=== PATIENT | female | born 1995 | race Hispanic/Latino ===

== ENCOUNTER 2018-10-05 15:56 | Emergency (ER) | payer MEDICAID, OTHER ==
--- NOTE | 2018-10-05 16:13 | Emergency Department Report ---
Chief Complaint: Headache Stated Complaint: HEADACHES/DIARRHEA Time Seen by Provider: 10/05/18 16:12 - HPI History of Present Illness: This is a 23 y.o. female that presents with headache and diarrhea since yesterday. - ROS Review of Systems: headache and diarrhea - Exam Vital Signs: Vital Signs 10/05/18 16:11 Temperature 98.4 F Pulse Rate 98 H Respiratory 18 Rate Blood Pressure 120/67 O2 Sat by Pulse 98 Oximetry MSE screening note: Focused history and physical exam performed. Due to findings the following was ordered: Fast track for further evaluation ED Disposition for MSE Condition: Stable
--- NOTE | 2018-10-05 19:08 | Emergency Department Report ---
ED Headache HPI - General Chief Complaint: Headache Stated Complaint: HEADACHES/DIARRHEA Time Seen by Provider: 10/05/18 16:12 - History of Present Illness Initial Comments: 23-year-old female presents to ED complaining throbbing aching type migraine headache and diarrhea that started last night. She states diarrhea was nonbloody, watery stools. Patient does not recall eating anything unusual in the past couple of days. She denies fevers/chills/blurry vision/chest pains or shortness of breath abdominal pain or vomiting. Timing/Duration: 24 hours Quality: mild, achy, throbbing Head Injury Location: frontal, temporal Recent Head Trauma: no recent headache/trauma, occasional headaches Modifying Factors: improves with: rest Associated Symptoms: denies: nausea/vomiting, nasal congestion, nasal drainage, sinus infection, vision changes, weakness Allergies/Adverse Reactions: Allergies No Known Allergies Allergy (Unverified 11/05/14 15:31) Home Medications: Ambulatory Orders Acetaminophen/Codeine [Tylenol #3] 1 tab PO Q6H PRN #10 tab 11/05/14 cephALEXin [Keflex] 250 mg PO Q6H #28 capsule 11/05/14 Ibuprofen [Motrin] 600 mg PO Q8H #20 tablet 10/05/18 Ondansetron (Nf) [Zofran TAB] 8 mg PO Q8HR #30 tablet 10/05/18 ED Review of Systems ROS: Stated complaint: HEADACHES/DIARRHEA Other details as noted in HPI Comment: All other systems reviewed and negative ED Past Medical Hx - Past Medical History Previous Medical History?: Yes Hx Hypertension: No Hx Diabetes: No Hx Deep Vein Thrombosis: No Hx Renal Disease: No Hx Sickle Cell Disease: No Hx Seizures: No Hx Asthma: No Hx HIV: No - Surgical History Past Surgical History?: No - Social History Smoking Status: Never Smoker Substance Use Type: None - Medications Home Medications: Home Medications Medication Instructions Recorded Confirmed Last Taken Type Acetaminophen/Codeine [Tylenol #3] 1 tab PO Q6H PRN #10 tab 11/05/14 Unknown Rx cephALEXin [Keflex] 250 mg PO Q6H #28 capsule 11/05/14 Unknown Rx Ibuprofen [Motrin] 600 mg PO Q8H #20 tablet 10/05/18 Unknown Rx Ondansetron (Nf) [Zofran TAB] 8 mg PO Q8HR #30 tablet 10/05/18 Unknown Rx ED Physical Exam - General Limitations: No Limitations General appearance: alert, in no apparent distress - Head Head exam: Present: atraumatic, normocephalic - Eye Eye exam: Present: normal appearance - ENT ENT exam: Present: mucous membranes moist - Neck Neck exam: Present: normal inspection - Respiratory Respiratory exam: Present: normal lung sounds bilaterally. Absent: respiratory distress - Cardiovascular Cardiovascular Exam: Present: regular rate, normal rhythm. Absent: systolic murmur, diastolic murmur, rubs, gallop - GI/Abdominal GI/Abdominal exam: Present: soft, normal bowel sounds. Absent: distended, tenderness, guarding, rebound - Rectal Rectal exam: Absent: normal inspection - Extremities Exam Extremities exam: Present: normal inspection - Back Exam Back exam: Present: normal inspection, full ROM. Absent: CVA tenderness (R), CVA tenderness (L) - Neurological Exam Neurological exam: Present: alert, oriented X3, CN II-XII intact, normal gait - Expanded Neurological Exam Expanded Patient oriented to: Present: person, place, time Speech: Present: fluid speech Cranial nerves: Facial Sensation: Normal Cerebellar function: Finger to Nose: Normal, Heel to Howard: Normal Sensory exam: Upper Extremity Light Touch: Normal, Lower Extremity Light Touch: Normal, Lower Extremity Temperature: Normal Motor strength exam: RUE: 5, LUE: 5, RLE: 5, LLE: 5 DTR: knee (R): 2+, knee (L): 2+ Best Eye Response (Odell): (4) open spontaneously Best Motor Response (Odell): (6) obeys commands Best Verbal Response (Concepcion): (5) oriented Concepcion Total: 15 - Psychiatric Psychiatric exam: Present: normal affect, normal mood - Skin Skin exam: Present: warm, dry, intact, normal color. Absent: rash, urticaria ED Course Vital Signs 10/05/18 16:11 Temperature 98.4 F Pulse Rate 98 H Respiratory 18 Rate Blood Pressure 120/67 O2 Sat by Pulse 98 Oximetry ED Medical Decision Making - Medical Decision Making 23 year female presents with migraine headache. Patient has no neurologic deficits. Patient had no diarrhea episodes in the ED. Discussed follow-up with primary care physician. Patient is alert and oriented 3 she is in no distress. Critical care attestation.: If time is entered above; I have spent that time in minutes in the direct care of this critically ill patient, excluding procedure time. ED Disposition Clinical Impression: Migraine headache without aura Disposition: TO HOME OR SELFCARE Is pt being admited?: No Does the pt Need Aspirin: No Condition: Stable Instructions: Migraine Headache (ED), Gastroenteritis (ED) Additional Instructions: Make sure to follow up with the primary care physician as discussed. Take all your medications as you've been prescribed. If you have any worsening symptoms or develop new symptoms please return to ED immediately. Prescriptions: Ibuprofen [Motrin] 600 mg PO Q8H #20 tablet Ondansetron (Nf) [Zofran TAB] 8 mg PO Q8HR #30 tablet Referrals: BRAD ROBBINS MD [Primary Care Provider] - 3-5 Days Forms: Accompanied Note, Work/School Release Form(ED) Time of Disposition: 19:25
== END 2018-10-05 19:31 | disposition home or self-care (01) ==
LOC: ED 15:56
DX: G43.009 Migraine without aura, not intractable, without status migrainosus (principal)
CPT/HCPCS: 99282

== ENCOUNTER 2019-04-28 21:27 | Day surgery (SDC) | payer OTHER ==
--- NOTE | 2019-04-28 22:38 | Event Note ---
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 Further treatment and workup at subsequent clinical providers discretion. Patient/guardian urged not to elope from the ED as their condition may be serious if not clinically assessed and managed. Initial orders include: labs, UA, US
[2019-04-28 23:13] LABS: Basophils % (Auto) 0.5 % (0.0-1.8); Eosinophils # (Auto) 0.1 K/mm3 (0.0-0.4); Eosinophils % (Auto) 1.1 % (0.0-4.3); Hematocrit 37.8 % (30.3-42.9); Hemoglobin 12.5 gm/dl (10.1-14.3); Lymphocytes # (Auto) 2.4 K/mm3 (1.2-5.4); Lymphocytes % (Auto) 32.3 % (13.4-35.0); Mean Corpuscular HGB Conc 33 % (30-34); Mean Corpuscular Volume 85 fl (79-97); Monocytes # (Auto) 0.6 K/mm3 (0.0-0.8); Monocytes % (Auto) 7.4 % (0.0-7.3); Platelet Count 191 K/mm3 (140-440); Red Blood Count 4.47 M/mm3 (3.65-5.03); Red Cell Distribution Width 13.5 % (13.2-15.2)
--- NOTE | 2019-04-29 00:36 | Emergency Department Report ---
ED HPI - General Chief complaint: Abdominal Pain Stated complaint: VAGINAL SPOTTING/7 WKS PREG Time Seen by Provider: 04/28/19 22:37 Source: patient Mode of arrival: Ambulatory Limitations: No Limitations - History of Present Illness Initial comments: She is a 24-year-old female that presents emergency room with complaints of vaginal spotting and abdominal cramping. Patient states her abdominal cramping is 1-2. Patient states her abdominal cramping has now resolved. Patient states that her spotting is slight. Patient denies clots. Patient denies vaginal discharge. 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 MD Complaint: abdominal pain, vaginal bleeding -: Sudden Location: abdomen Radiation: none Severity scale (0 -10): 2 Quality: cramping Consistency: now resolved Improves with: rest Worsens with: movement Associated symptoms: vaginal bleeding Vaginal bleeding: light :: Yes OB History - Current : no complications OB History - Previous Pregnancies: no complications Pre-vanita care: followed by OB - Related Data Previous Rx's Medication Instructions Recorded Last Taken Type Acetaminophen/Codeine [Tylenol #3] 1 tab PO Q6H PRN #10 tab 11/05/14 Unknown Rx cephALEXin [Keflex] 250 mg PO Q6H #28 capsule 11/05/14 Unknown Rx Ibuprofen [Motrin] 600 mg PO Q8H #20 tablet 10/05/18 Unknown Rx Ondansetron (Nf) [Zofran TAB] 8 mg PO Q8HR #30 tablet 10/05/18 Unknown Rx Allergies Allergy/AdvReac Type Severity Reaction Status Date / Time No Known Allergies Allergy Unverified 11/05/14 15:31 ED Review of Systems ROS: Stated complaint: VAGINAL SPOTTING/7 WKS PREG Other details as noted in HPI Constitutional: denies: chills, fever Eyes: denies: eye pain, eye discharge, vision change ENT: denies: ear pain, throat pain Respiratory: denies: cough, shortness of breath, wheezing Cardiovascular: denies: chest pain, palpitations Endocrine: no symptoms reported Gastrointestinal: abdominal pain. denies: nausea, diarrhea Genitourinary: denies: urgency, dysuria, discharge Musculoskeletal: denies: back pain, joint swelling, arthralgia Skin: denies: rash, lesions Neurological: denies: headache, weakness, paresthesias Psychiatric: denies: anxiety, depression Hematological/Lymphatic: denies: easy bleeding, easy bruising ED Past Medical Hx - Past Medical History Previous Medical History?: No Hx Hypertension: No Hx Diabetes: No Hx Deep Vein Thrombosis: No Hx Renal Disease: No Hx Sickle Cell Disease: No Hx Seizures: No Hx Asthma: No Hx HIV: No - Surgical History Past Surgical History?: No - Family History Family history: no significant - Social History Smoking Status: Never Smoker Substance Use Type: None - Medications Home Medications: Home Medications Medication Instructions Recorded Confirmed Last Taken Type Acetaminophen/Codeine [Tylenol #3] 1 tab PO Q6H PRN #10 tab 11/05/14 Unknown Rx cephALEXin [Keflex] 250 mg PO Q6H #28 capsule 11/05/14 Unknown Rx Ibuprofen [Motrin] 600 mg PO Q8H #20 tablet 10/05/18 Unknown Rx Ondansetron (Nf) [Zofran TAB] 8 mg PO Q8HR #30 tablet 10/05/18 Unknown Rx ED Physical Exam - General Limitations: No Limitations General appearance: alert, in no apparent distress - Head Head exam: Present: atraumatic, normocephalic - Eye Eye exam: Present: normal appearance - ENT ENT exam: Present: mucous membranes moist - Neck Neck exam: Present: normal inspection - Respiratory Respiratory exam: Present: normal lung sounds bilaterally. Absent: respiratory distress - Cardiovascular Cardiovascular Exam: Present: regular rate, normal rhythm. Absent: systolic murmur, diastolic murmur, rubs, gallop - GI/Abdominal GI/Abdominal exam: Present: soft, normal bowel sounds - Extremities Exam Extremities exam: Present: normal inspection - Back Exam Back exam: Present: normal inspection - Neurological Exam Neurological exam: Present: alert, oriented X3 - Psychiatric Psychiatric exam: Present: normal affect, normal mood - Skin Skin exam: Present: warm, dry, intact, normal color. Absent: rash ED Course Vital Signs 04/28/19 04/29/19 22:38 03:41 Temperature 99 F 98.7 F Pulse Rate 77 100 H Respiratory 18 18 Rate Blood Pressure 113/46 Blood Pressure 112/62 [Left] O2 Sat by Pulse 99 100 Oximetry - Reevaluation(s) Reevaluation #1: Discussed all results with patient. I discussed plan of care patient. patient agrees plan of care and admission 04/29/19 01:16 - Consultations Consultation #1: EXECUTIVE ADMINISTRATIVE ASSISTANT paged. Dr. Tonia Lui's group . 04/29/19 01:17 I discussed case with Dr. Bond and Dr. Bond see the patient. Dr. Bond states she is going to admit 04/29/19 01:35 ED Medical Decision Making - Lab Data Result diagrams: 04/28/19 22:40 - Radiology Data Radiology results: report reviewed ULTRASOUND OBSTETRIC INDICATION / CLINICAL INFORMATION: preg, spotting. Clinical Gestational Age (GA): 7 weeks 1 day TECHNIQUE: Transabdominal and Transvaginal. COMPARISON: None available. FINDINGS: UTERUS: There is no evidence of an intrauterine . The endometrium is slightly heterogeneous, measuring up to 1.4 cm in thickness. ADNEXA: The ovaries are unremarkable. There is a right adnexal mass measuring up to 3.0 x 1.6 cm which contains a yolk sac and a pole. The crown-rump length measures up to 7.6 mm, compatible with 6 weeks 5 days. Cardiac motion is identified, with heart rate of 120. FREE FLUID: None. ADDITIONAL FINDINGS: None. IMPRESSION: 1. Findings compatible with a right ectopic , with a pole with cardiac motion identified. 2. No intrauterine . - Medical Decision Making Patient is a 24-year-old female that presents emergency room with complaints of abdominal pain and vaginal spotting. Patient had no strong done and is positive for a several week pole in the fallopian tube. EXECUTIVE ADMINISTRATIVE ASSISTANT consult that and took patient to the operating room. Patient typed and screened and found to be Rh- and Khushboo assessment was ordered program will be given in the OR. Dr. Bond made aware of Rh status. Rest of labs unremarkable. - Differential Diagnosis ectopic . Abdominal pain and vaginal spotting. Threatened aborti Critical Care Time: Yes Critical care attestation.: If time is entered above; I have spent that time in minutes in the direct care of this critically ill patient, excluding procedure time. Critical Care Time: 45 minutes ED Disposition Clinical Impression: Vaginal spotting Abdominal pain Qualifiers: Abdominal location: lower abdomen, unspecified Qualified Code(s): R10.30 - Lower abdominal pain, unspecified Ectopic Qualifiers: Location of ectopic : tubal Intrauterine status: without intrauterine Laterality: unspecified laterality Qualified Code(s): O00.109 - Unspecified tubal without intrauterine Rh negative status during Qualifiers: Trimester: first trimester Qualified Code(s): O26.891 - Other specified related conditions, first trimester Disposition: OP ADMIT IP TO THIS HOSP Is pt being admited?: Yes Does the pt Need Aspirin: No Condition: Critical Time of Disposition: 01:15
--- NOTE | 2019-04-29 01:05 | Ultrasound Report ---
ULTRASOUND OBSTETRIC INDICATION / CLINICAL INFORMATION: preg, spotting. Clinical Gestational Age (GA): 7 weeks 1 day TECHNIQUE: Transabdominal and Transvaginal. COMPARISON: None available. FINDINGS: UTERUS: There is no evidence of an intrauterine . The endometrium is slightly heterogeneous, measuring up to 1.4 cm in thickness. ADNEXA: The ovaries are unremarkable. There is a right adnexal mass measuring up to 3.0 x 1.6 cm whic h contains a yolk sac and a pole. The crown-rump length measures up to 7.6 mm, compatible with 6 weeks 5 days. Cardiac motion is identified, with heart rate of 120. FREE FLUID: None. ADDITIONAL FINDINGS: None. IMPRESSION: 1. Findings compatible with a right ectopic , with a pole with cardiac motion identifi ed. 2. No intrauterine . The above findings were discussed with Dr. Nathan Carlos in the Emergency Department at 11:59 PM ce ntral time on 04/28/2019. Signer Name: Leigh Iverson MD Signed: 04/29/2019 1:01 AM Workstation Name: [id number]
--- NOTE | 2019-04-29 02:26 | History and Physical Report ---
History of Present Illness Date of examination: 04/29/19 Chief complaint: , vaginal spotting History of present illness: Pt is a 24 year old -[place] female LMP 03/09/19 at 7w2d who presents to the ED with mild pelvic cramping and vaginal spotting. During her evaluation, her HCG was noted to be 7,166 mIU/mL and pelvic ultrasound revealed a right ectopic with cardiac activity and yolk sac. 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 Family/Genetic History: hypertension Social history: no significant social history - Obstetrical History Expected Date of Delivery: 12/14/19 Actual Gestation: 7 Week(s) 2 Day(s) : 2 Para: 1 Hx # Term Pregnancies: 1 Number of Pregnancies: 0 Spontaneous Abortions: 0 Induced : 0 Number of Living Children: 1 Medications and Allergies Allergies Allergy/AdvReac Type Severity Reaction Status Date / Time No Known Allergies Allergy Unverified 11/05/14 15:31 Home Medications Medication Instructions Recorded Confirmed Last Taken Type Acetaminophen/Codeine [Tylenol #3] 1 tab PO Q6H PRN #10 tab 11/05/14 Unknown Rx cephALEXin [Keflex] 250 mg PO Q6H #28 capsule 11/05/14 Unknown Rx Ibuprofen [Motrin] 600 mg PO Q8H #20 tablet 10/05/18 Unknown Rx Ondansetron (Nf) [Zofran TAB] 8 mg PO Q8HR #30 tablet 10/05/18 Unknown Rx Active Meds: Active Medications Lactated Ringer's (Lactated Ringers) 1,000 mls @ 125 mls/hr IV DIRECT JORDY Cefazolin Sodium (Ancef/Sterile Water 2 Gm/20 Ml) 2 gm in 20 mls @ 80 mls/hr IV PREOP NR; Protocol Review of Systems All systems: negative - Vital Signs Vital signs: Vital Signs Temp Pulse Resp BP Pulse Ox 99 F 77 18 113/46 99 04/28/19 22:38 04/28/19 22:38 04/28/19 22:38 04/28/19 22:38 04/28/19 22:38 Temp Pulse Resp BP Pulse Ox 99 F 77 18 113/46 99 04/28/19 22:38 04/28/19 22:38 04/28/19 22:38 04/28/19 22:38 04/28/19 22:38 - Physical Exam Breasts: Positive: deferred Cardiovascular: Regular rate Lungs: Positive: Clear to auscultation Abdomen: Positive: soft. Negative: guarding Extremities: Positive: normal Results Result Diagrams: 04/28/19 22:40 Abnormal lab results 04/28/19 04/28/19 Range/Units 22:40 22:40 [place] % (Auto) 7.4 H (0.0-7.3) % HCG, Quant 7166 H (0-4) mIU/mL All other labs normal. Assessment and Plan A: Right ectopic Rh Negative P: Proceed with laparoscopic right salpingectomy, possible laparotomy and other indicated procedures. Rhogam postoperatively
[2019-04-29] MEDS ORDERED: ONDANSETRON 4 MG/2 ML INJ IV PRN (02:34)
[2019-04-29] MEDS ORDERED: HYDROmorphone 1 MG/1 ML INJ IV PRN (02:34)
[2019-04-29] MEDS ORDERED: fentaNYL 100 MCG/2 ML INJ IV PRN (02:34)
--- NOTE | 2019-04-29 02:35 | Anesthesia Day of Surgery ---
Anesthesia Day of Surgery - Day of Surgery Patient Examined: Yes Patient H&P Reviewed: Yes Patient is NPO: Yes (15:00)
--- NOTE | 2019-04-29 02:36 | Anesthesia Consultation ---
Anesthesia Consult and Med Hx Date of service: 04/29/19 - Airway Anesthetic Teeth Evaluation: Good ROM Head & Neck: Adequate Mental/Hyoid Distance: Adequate Mallampati Class: Class I Intubation Access Assessment: Good - Pre-Operative Health Status ASA Pre-Surgery Classification: ASA1, Emergency Proposed Anesthetic Plan: General - Pulmonary Hx Asthma: No - Cardiovascular System Hx Hypertension: No - Central Nervous System Hx Seizures: No Hx Psychiatric Problems: No - Endocrine Hx Renal Disease: No Hx Hypothyroidism: No Hx Hyperthyroidism: No - Hematic Hx Anemia: No Hx Sickle Cell Disease: No - Other Systems Hx Alcohol Use: No
[2019-04-29] MEDS ORDERED: ceFAZolin/Water 2 GM/20 ML 2 GM/20 ML SYRINGE IV NR (03:00)
[2019-04-29] MEDS ORDERED: LACTATED RINGERS 1,000 ML IV SCH (03:00)
[2019-04-29] MEDS ORDERED: BUPIVACAINE/PF (0.5%) 5 MG/1 ML 30 ML VIAL INFILTRATI ONE ×2 (04:31→05:31)
[2019-04-29] MEDS ORDERED: ROCURONIUM 50 MG/5 ML INJ IV ONE (04:37)
[2019-04-29] MEDS ORDERED: HYDROmorphone 1 MG/1 ML INJ ONE (04:37)
[2019-04-29] MEDS ORDERED: SUCCINYLCHOLINE CHLORIDE 200 MG/10 ML INJ MDV ONE (04:37)
[2019-04-29] MEDS ORDERED: PROPOFOL 200 MG/20 ML VIAL IV ONE (04:37)
[2019-04-29] MEDS ORDERED: LIDOCAINE MPF (2%) 20 MG/1 ML VIAL 5 ML ONE (04:37)
[2019-04-29] MEDS ORDERED: SODIUM CHLORIDE 0.9% IRR 1,500 ML BOTTLE IR ONE (05:31)
[2019-04-29] MEDS ORDERED: ONDANSETRON 4 MG/2 ML INJ ONE (05:56)
[2019-04-29] MEDS ORDERED: NEOSTIGMINE 10MG/10 ML INJ MDV ONE (05:56)
[2019-04-29] MEDS ORDERED: KETOROLAC 30 MG/1 ML INJ ONE (05:56)
[2019-04-29] MEDS ORDERED: GLYCOPYRROLATE 0.4 MG/2 ML INJ ONE (05:57)
--- NOTE | 2019-04-29 06:20 | Short Stay Summary ---
Short Stay Documentation Date of service: 04/29/19 - History H&P: dictated Social history: no significant social history - Allergies and Medications Current Medications: Allergies No Known Allergies Allergy (Unverified 11/05/14 15:31) Home Medications Medication Instructions Recorded Confirmed Last Taken Type Acetaminophen/Codeine [Tylenol #3] 1 tab PO Q6H PRN #10 tab 11/05/14 Unknown Rx cephALEXin [Keflex] 250 mg PO Q6H #28 capsule 11/05/14 Unknown Rx Ibuprofen [Motrin] 600 mg PO Q8H #20 tablet 10/05/18 Unknown Rx Ondansetron (Nf) [Zofran TAB] 8 mg PO Q8HR #30 tablet 10/05/18 Unknown Rx Active Medications Fentanyl (Sublimaze) 50 mcg IV Q5MIN PRN PRN Reason: Pain , Severe (7-10) Stop: 04/29/19 10:17 Hydromorphone HCl (Dilaudid) 0.5 mg IV Q10MIN PRN PRN Reason: Pain , Severe (7-10) Stop: 04/29/19 10:19 Lactated Ringer's (Lactated Ringers) 1,000 mls @ 125 mls/hr IV DIRECT JORDY Cefazolin Sodium (Ancef/Sterile Water 2 Gm/20 Ml) 2 gm in 20 mls @ 80 mls/hr IV PREOP NR; Protocol Stop: 04/30/19 02:59 Ondansetron HCl (Zofran) 4 mg IV ONCE PRN PRN Reason: Nausea And Vomiting - Physical exam Breasts: deferred - Brief post op/procedure progress note Date of procedure: 04/29/19 Pre-op diagnosis: Right ectopic Post-op diagnosis: same Procedure: Laparoscopic right salpingectomy Findings: 1) Ectopic in the isthmus of right fallopian tube 2) Filmy adhesions in bilateral adnexae Surgeon: EKTA BOND Data Steward: DELFIN LAZARO Estimated blood loss: minimal Pathology: list (right fallopian tube, ectopic to pathology) Specimen disposition: to lab Condition: stable - Hospital course Hospital course: Pt underwent laparoscopic right salpingectomy which she tolerated well. She was observed in the PACU until she met discharge criteria. She will follow up on 05/08/19. - Disposition Condition at discharge: Stable Disposition: DC-01 TO HOME OR SELFCARE - Discharge Diagnoses (1) Ectopic Status: Acute Qualifiers: Location of ectopic : tubal Intrauterine status: without intrauterine Laterality: unspecified laterality Qualified Code(s): O00.109 - Unspecified tubal without intrauterine (2) Rh negative status during Status: Acute Qualifiers: Trimester: first trimester Qualified Code(s): O26.891 - Other specified related conditions, first trimester; Z67.91 - Unspecified blood type, Rh negative Short Stay Discharge Plan Activity: other (Nothing in vagnia x 4 wks, no tub baths or swimming ) Weight Bearing Status: Full Weight Bearing Wound: keep clean and dry Follow up with: PRIMARY CAREMD [Primary Care Provider] - 7 Days EKTA BOND MD [Staff Physician] - 05/08/19 (Please call the office to schedule an incision check with Dr Bond ) Forms: [facility] Work/School Release Form Prescriptions: Ibuprofen [Motrin] 800 mg PO Q8HR PRN #30 tablet PRN Reason: Pain, Moderate (4-6) oxyCODONE /ACETAMINOPHEN [Percocet 5/325] 1 tab PO Q6HR PRN #30 tablet PRN Reason: Pain
[2019-04-29] MEDS ORDERED: PHENOL 1.4% 177 ML BOTTLE MM PRN (06:27)
[2019-04-29 08:21] VITALS: BP 110/75
--- NOTE | 2019-04-29 11:11 | Post Anesthesia Evaluation ---
- Post Anesthesia Evaluation Patient Participated: Yes Airway Patent: Yes Stable Respiratory Function: Yes Nausea/Vomiting: No Temp > 96.8F: Yes Pain Manageable: Yes Adequeate Hydration: Yes Anesthesia Complications: No Block Receding Appropriately: Not Applicable Patient on Ventilator: No
== END 2019-04-29 07:55 | disposition home or self-care (01) ==
LOC: ED 21:27 → OR 04-29 02:29
PROVIDERS: ATTEND Obstetrics & Gynecology
DX: O00.90 Unspecified ectopic pregnancy without intrauterine pregnancy (principal); Z82.49 Family history of ischemic heart disease and other diseases of the circulatory system; Z79.899 Other long term (current) drug therapy; Z3A.00 Weeks of gestation of pregnancy not specified
CPT/HCPCS: 36415; 59151; 76801; 76817; 84702; 85025; 85461; 86850; 86900; 86901; 88305; 99284; J0330; J0690; J1170; J1885; J2405; J2704; J2710; J2790; J7120; 88302